=== PATIENT | male | born 1965 | race Caucasian/White ===

== ENCOUNTER 2019-08-22 16:26 | Emergency (ER) | payer BC ==
[2019-08-22] MEDS ORDERED: Acetaminophen/HYDROcodone 325-5 MG Tab PO ONE (16:27)
[2019-08-22] MEDS ORDERED: Ondansetron 4 MG Tab.DIS PO ONE (16:27)
[2019-08-22] MEDS ORDERED: Sodium Chloride 0.9% 10 ML Syringe FLUSH PRN (17:08)
[2019-08-22] MEDS ORDERED: Ondansetron 4 MG/2 ML SDV IVPUSH ONE (17:10)
[2019-08-22] MEDS ORDERED: HYDROmorphone 2 MG/ML SDV IVPUSH ONE (17:10)
[2019-08-22] MEDS ORDERED: Sodium Chloride 0.9% 1,000 ML IV SCH (17:15)
--- NOTE | 2019-08-22 17:19 | EDM.PDOC ---
ED HPI GENERAL MEDICAL PROBLEM - General Chief Complaint: Genitourinary Problem Stated Complaint: TESTICULAR PAIN Time Seen by Provider: 08/22/19 17:14 Source of Information: Reports: Patient History Limitations: Reports: No Limitations - History of Present Illness INITIAL COMMENTS - FREE TEXT/NARRATIVE: Presents with intermittent generalized scrotal pain x 4 days, the pain then became constant today. Denies injury or urinary complaints. He also complains of left lower back pain and nausea. Denies change in bowel habits. Duration: Day(s): (4) Quality: Reports: Ache Severity: Moderate Bilateral Groin Pain Score (Numeric/FACES): 9 - Related Data Allergies Allergy/AdvReac Type Severity Reaction Status Date / Time sumatriptan [From Imitrex] Allergy Cannot Verified 08/22/19 16:34 Remember sumatriptan succinate Allergy Cannot Verified 08/22/19 16:34 [From Imitrex] Remember Home Meds: Home Meds Acetaminophen/HYDROcodone [[place] 325-5 MG] 1 - 2 tab PO Q6H PRN #12 tab [Rx] Carbidopa/Levodopa [Carbidopa-Levo 25-100 MG ODT] 0.5 tab PO TID 08/22/19 [ History] Dulaglutide [Trulicity] 1 dose SQ DAILY 08/22/19 [History] Metoprolol Tartrate 25 mg PO DAILY 08/22/19 [History] Ondansetron [Zofran ODT] 4 mg PO Q8H PRN #10 tab.dis 08/22/19 [Rx] PARoxetine HCL [Paroxetine HCl] 20 mg PO DAILY 08/22/19 [History] Pramipexole Di-HCl [Pramipexole Dihydrochloride] 0.125 mg PO DAILY 08/22/19 [ History] SitaGLIPtin [Januvia] 100 mg PO DAILY 08/22/19 [History] Tamsulosin [Tamsulosin 24 Hr] 0.4 mg PO DAILY #15 cap.er 08/22/19 [Rx] clonazePAM [Clonazepam] 0.5 mg PO DAILY 08/22/19 [History] lisinopriL [Lisinopril] 20 mg PO DAILY 08/22/19 [History] metFORMIN HCl [Metformin HCl] 1,000 mg PO BID 08/22/19 [History] Past Medical History Cardiovascular History: Reports: High Cholesterol, Hypertension Neurological History: Reports: Parkinson's Endocrine/Metabolic History: Reports: Diabetes, Type II Social & Family History - Family History Family Medical History: Noncontributory - Tobacco Use Smoking Status *Q: Never Smoker - Caffeine Use Caffeine Use: Reports: Coffee - Recreational Drug Use Recreational Drug Use: No ED ROS GENERAL - Review of Systems Review Of Systems: Comprehensive ROS is negative, except as noted in HPI. ED EXAM, RENAL/ - Physical Exam Exam: See Below Exam Limited By: No Limitations General Appearance: Alert, WD/WN, No Apparent Distress Ears: Normal External Exam Nose: Normal Inspection Throat/Mouth: No Airway Compromise Head: Atraumatic, Normocephalic Neck: Full Range of Motion Respiratory/Chest: No Respiratory Distress, Lungs Clear, Normal Breath Sounds Cardiovascular: Regular Rate, Rhythm, No Murmur GI/Abdominal: Normal Bowel Sounds, Soft, No Distention, Tender (LLQ). No: Guarding, Rigid, Rebound (Male) Exam: No Hernia, Normal Inspection. No: Scrotal Swelling, Scrotum Tenderness (L), Scrotum Tenderness (R), Testicular Mass, Testicular Tenderness ( L), Testicular Tenderness (R), Urethral Discharge Rectal (Males) Exam: Other (mild prostate tenderness). No: Perirectal Abscess Back Exam: Normal Inspection. No: CVA Tenderness (R), CVA Tenderness (L) Extremities: Normal Range of Motion Neurological: Alert, Oriented, Normal Cognition Psychiatric: Normal Affect, Normal Mood Skin Exam: Warm, Dry, Intact Course - Vital Signs Last Recorded V/S: Last Vital Signs Temp 36.6 C 08/22/19 16:42 Pulse 93 08/22/19 16:42 Resp 18 08/22/19 16:42 BP 143/99 H 08/22/19 16:42 Pulse Ox 98 08/22/19 16:42 - Orders/Labs/Meds Orders: Active Orders 24 hr Category Date Time Status Abdomen Pelvis wo Cont [CT] Stat Exams 08/22/19 18:00 Taken CHLAMYDIA/GC AMPLIFICATION Stat Lab 08/22/19 17:30 Received Sodium Chloride 0.9% [Normal Saline] 1,000 ml Med 08/22/19 17:15 Active IV ASDIRECTED Sodium Chloride 0.9% [Saline Flush] Med 08/22/19 17:08 Active 10 ml FLUSH ASDIRECTED PRN Saline Lock Insert [OM.PC] Routine Oth 08/22/19 17:08 Ordered Medication Orders Sodium Chloride (Normal Saline) 1,000 mls @ 200 mls/hr IV ASDIRECTED NEIL Last Admin: 08/22/19 17:22 Dose: 200 mls/hr Sodium Chloride (Saline Flush) 10 ml FLUSH ASDIRECTED PRN PRN Reason: Keep Vein Open Labs: Laboratory Tests 08/22/19 08/22/19 08/22/19 Range/Units 17:20 17:20 17:30 WBC 8.9 (4.5-12.0) X10-3/uL RBC 5.17 (4.30-5.75) x10(6)uL Hgb 15.2 (13.5-17.8) g/dL Hct 45.2 (30.0-51.3) % MCV 87.4 (80-96) fL MCH 29.4 (27.7-33.6) pg MCHC 33.6 (32.2-35.4) g/dL RDW 12.6 (11.5-15.5) % Plt Count 223 (125-369) X10(3)uL MPV 8.7 (7.4-10.4) fL Neut % (Auto) 65.1 (46-82) % Lymph % (Auto) 24.9 (13-37) % [place] % (Auto) 7.5 (4-12) % Eos % (Auto) 2 (1.0-5.0) % Baso % (Auto) 1 (0-2) % Neut # (Auto) 5.8 (1.6-8.3) # Lymph # (Auto) 2.2 (0.6-5.0) # [place] # (Auto) 0.7 (0.0-1.3) # Eos # (Auto) 0.1 (0.0-0.8) # Baso # (Auto) 0.1 (0.0-0.2) # Sodium 138 (135-145) mmol/L Potassium 3.9 (3.5-5.3) mmol/L Chloride 105 (100-110) mmol/L Carbon Dioxide 24 (21-32) mmol/L BUN 15 (7-18) mg/dL Creatinine 1.3 (0.70-1.30) mg/dL Est Cr Clr Drug Dosing 72.56 mL/min Estimated GFR (MDRD) 57 L (>60) BUN/Creatinine Ratio 11.5 (9-20) Glucose 108 (80-116) mg/dL Calcium 10.1 (8.6-10.2) mg/dL Total Bilirubin 0.6 (0.1-1.3) mg/dL AST 24 (5-25) IU/L ALT 17 (12-36) U/L Alkaline Phosphatase 92 (56-112) IU/L Total Protein 7.1 (6.0-8.0) g/dL Albumin 3.9 (3.5-5.2) g/dL Globulin 3.2 g/dL Albumin/Globulin Ratio 1.2 Urine Color Yellow (YELLOW) Urine Appearance Clear (CLEAR) Urine pH 6.0 (5.0-6.5) Ur Specific [place] 1.005 L (1.010-1.025) Urine Protein Negative (NEGATIVE) mg/dL Urine Glucose (UA) Normal (NORMAL) mg/dL Urine Ketones Negative (NEGATIVE) mg/dL Urine Occult Blood Large H (NEGATIVE) Urine Nitrite Negative (NEGATIVE) Urine Bilirubin Negative (NEGATIVE) Urine Urobilinogen Normal (NEGATIVE) mg/dL Ur Leukocyte Esterase Negative (NEGATIVE) Urine RBC 0-5 (0-5) Urine WBC 0-5 (0-5) Ur Squamous Epith Cells Occasional (NS,R,O) Urine Bacteria Rare H (NS) Meds: Medications Generic Name Dose Route Start Last Admin Trade Name Freq PRN Reason Stop Dose Admin Sodium Chloride 1,000 mls @ 200 mls/hr 08/22/19 17:15 08/22/19 17:22 Normal Saline IV 200 mls/hr ASDIRECTED NEIL Administration Sodium Chloride 10 ml 08/22/19 17:08 Saline Flush FLUSH ASDIRECTED PRN Keep Vein Open Discontinued Medications Generic Name Dose Route Start Last Admin Trade Name Freq PRN Reason Stop Dose Admin Hydromorphone HCl 0.5 mg 08/22/19 17:10 08/22/19 17:23 Dilaudid IVPUSH 08/22/19 17:11 0.5 mg ONETIME ONE Administration Ketorolac Tromethamine 30 mg 08/22/19 18:01 05/16/20 18:19 Toradol IVPUSH 08/22/19 18:02 30 mg ONETIME ONE Administration Ondansetron HCl 4 mg 08/22/19 17:10 08/22/19 17:22 Zofran IVPUSH 08/22/19 17:11 4 mg ONETIME ONE Administration Tamsulosin HCl 0.4 mg 08/22/19 18:31 08/22/19 18:34 Flomax PO 08/22/19 18:32 0.4 mg ONETIME ONE Administration - Radiology Interpretation Free Text/Narrative:: Patient Name: KG MONSON Date of : 1965 Procedure: CT ABDOMEN PELVIS WITHOUT CONTRAST Date of Service: 08/22/2019 EXAM: CT ABDOMEN PELVIS WITHOUT CONTRAST INDICATION:ICD-10 R10.9 Left flank pain left flank pain TECHNIQUE: Non contrast axial CT imaging was performed through the abdomen and pelvis with sagittal and coronal reconstructions. COMPARISON(S): 12/24/2018 FINDINGS: 3 mm calculus left UVJ. Left ureterectasis. Mild left hydronephrosis. Multiple additional bilateral nonobstructing calyceal tip calculi both kidneys. Appendectomy. Cholecystectomy. Surgical clips about the proximal stomach and splenic hilum. Air-filled esophagus and/or small hiatal hernia. The stomach is incompletely distended. Minimal haziness about the central mesentery, nonspecific. Redundant sigmoid colon. Normal caliber small bowel. No intraperitoneal free air or fluid. Lingular atelectasis/scarring. No suspicious osseous lesion. IMPRESSION: 1. 3 mm left UVJ calculus with mild obstructive uropathy. 2. Increased nonobstructing calyceal tip stone burden both kidneys since 2018 CT. Finalized by: Amelie Bruno MD on 08/22/2019 6:51 PM CDT Patient/Procedure Information: [facility] MRN/CHANDA: [id number]/ Order Number: [id number] Accession Number: [id number] - Re-Assessments/Exams Free Text/Narrative Re-Assessment/Exam: 08/22/19 19:00 Symptoms improved after medications. Departure - Departure Time of Disposition: 19:00 Disposition: Home, Self-Care 01 Condition: Good Clinical Impression: Ureterolithiasis - Discharge Information *PRESCRIPTION DRUG MONITORING PROGRAM REVIEWED*: Yes *COPY OF PRESCRIPTION DRUG MONITORING REPORT IN PATIENT SANDIP: No Prescriptions: Acetaminophen/HYDROcodone [[place] 325-5 MG] 1 - 2 tab PO Q6H PRN #12 tab PRN Reason: Pain Ondansetron [Zofran ODT] 4 mg PO Q8H PRN #10 tab.dis PRN Reason: Nausea/Vomiting Tamsulosin [Tamsulosin 24 Hr] 0.4 mg PO DAILY #15 cap.er Instructions: Kidney Stones, Mecn-am-Ehpl, Pain Medicine Instructions, Easy-to- Read, Dietary Guidelines to Help Prevent Kidney Stones Referrals: Ann Salazar NP [Primary Care Provider] - 2 Days Forms: ED Department Discharge Additional Instructions: Take the prescriptions for [place], Zofran, and Flomax as directed. Drink plenty of fluids. Follow up with your primary physician in 2-3 days. Return to the ER if symptoms worsen. Sepsis Event Note - Evaluation Sepsis Screening Result: No Definite Risk - Focused Exam Vital Signs: Vital Signs Temp Pulse Resp BP Pulse Ox 08/22/19 16:42 36.6 C 93 18 143/99 H 98 Date Exam was Performed: 08/22/19 Time Exam was Performed: 19:00 - My Orders Last 24 Hours: My Active Orders 08/22/19 17:08 Sodium Chloride 0.9% [Saline Flush] 10 ml FLUSH ASDIRECTED PRN Saline Lock Insert [OM.PC] Routine 08/22/19 17:15 Sodium Chloride 0.9% [Normal Saline] 1,000 ml IV ASDIRECTED 08/22/19 17:30 CHLAMYDIA/GC AMPLIFICATION Stat 08/22/19 18:00 Abdomen Pelvis wo Cont [CT] Stat - Assessment/Plan Last 24 Hours: My Active Orders 08/22/19 17:08 Sodium Chloride 0.9% [Saline Flush] 10 ml FLUSH ASDIRECTED PRN Saline Lock Insert [OM.PC] Routine 08/22/19 17:15 Sodium Chloride 0.9% [Normal Saline] 1,000 ml IV ASDIRECTED 08/22/19 17:30 CHLAMYDIA/GC AMPLIFICATION Stat 08/22/19 18:00 Abdomen Pelvis wo Cont [CT] Stat
[2019-08-22] MEDS ORDERED: Ketorolac 30 MG/ML SDV IVPUSH ONE (18:01)
[2019-08-22] MEDS ORDERED: Tamsulosin 0.4 MG Cap.ER PO ONE (18:31)
[2019-08-22 21:25] VITALS: BP 143/93; PULSE 75
[2019-08-26 10:13] LABS: CHLAMYDIA TRACHOMATIS, NAA Negative (Negative); NEISSERIA GONORRHOEAE, NAA Negative (Negative)
== END 2019-08-22 19:55 | disposition home or self-care (01) ==
LOC: FB.ED 16:26
DX: N13.2 Hydronephrosis with renal and ureteral calculous obstruction (principal); I10 Essential (primary) hypertension; G20 Parkinson's disease; E11.9 Type 2 diabetes mellitus without complications; Z79.84 Long term (current) use of oral hypoglycemic drugs; Z79.899 Other long term (current) drug therapy; Z88.8 Allergy status to other drugs, medicaments and biological substances
CPT/HCPCS: 36415; 74176; 80053; 81001; 85025; 87491; 87591; 96374; 96375; 99284; A9270; J1170; J1885; J2405; J7030